=== PATIENT | female | born 1940 | race Caucasian/White ===

== ENCOUNTER 2023-07-25 08:14 | Outpatient (OUT) | payer MEDICARE, SELFPAY ==
[2023-07-25 08:42] LABS: Basophils Absolute Auto 0.1 10^3/uL (0.0-0.1); Basophils Percent Auto 1.6 % (0.2-2.0); Eosinophils Absolute Auto 0.4 10^3/uL (0.0-0.7); Eosinophils Percent Auto 5.8 % (0.9-7.0); Hematocrit 39.5 % (36.0-48.0); Immature Granulocytes Abs Auto 0.01 10^3/uL (0.00-0.03); Immature Granulocytes Pct Auto 0.1 % (0.0-0.5); Lymphocytes Absolute Auto 2.2 10^3/uL (1.2-3.8); Lymphocytes Percent Auto 31.4 % (20.5-60.0); Mean Corpuscular HGB Conc 32.9 g/dL (29.9-35.2); Mean Corpuscular Hemoglobin 31.3 pg (26.7-34.0); Mean Platelet Volume 9.8 fL (9.5-13.5); Monocytes Absolute Auto 0.5 10^3/uL (0.3-0.8); Monocytes Percent Auto 6.9 % (1.7-12.0); Neutrophils Absolute Auto 3.7 10^3/uL (1.4-6.5); Neutrophils Percent Auto 54.2 % (43.0-75.0); Platelet Count 353 10^3/uL (150-450); Red Blood Count 4.16 10^6/uL (4.20-5.40); Red Cell Distribution Width 13.1 % (11.0-15.0); White Blood Count 6.8 10^3/uL (4.0-11.0)
[2023-07-25 09:03] LABS: Estimated Average Glucose 143 mg/dL; Glycohemoglobin A1C 6.6 % (4.5-6.2)
[2023-07-25 09:31] LABS: Alanine Aminotransferase 20 U/L (14-59); Albumin Level 3.6 g/dL (3.4-5.0); Alkaline Phosphatase 110 U/L (46-116); Anion Gap 13.5; Aspartate Amino Transferase 19 U/L (15-37); BUN Creatinine Ratio 26.2; Bilirubin Total 0.5 mg/dL (0.2-1.0); Carbon Dioxide 27.1 mmol/L (21.0-32.0); Chloride 105 mmol/L (98-107); Chol HDL Ratio 4.2; Cholesterol 172 mg/dL (<=200); Estimated GFR (African America >60 (>=60); Estimated GFR (Non-African Ame >60 (>=60); Free T3 2.26 pg/mL (2.18-3.98); Globulin 3.5 g/dL; Glucose 130 mg/dL (74-106); HDL Cholesterol 41 mg/dL (40-60); Potassium 3.6 mmol/L (3.5-5.1); Sodium 142 mmol/L (136-145); Thyroid Stimulating Hormone 2.211 uIU/mL (0.358-3.740); Total Protein 7.1 g/dL (6.4-8.2); Triglycerides 156 mg/dL (<=150); VLDL CHOLESTEROL 31.2 mg/dL
== END 2023-07-25 08:15 | disposition home or self-care (01) ==
PROVIDERS: PCP Family Medicine; Visit Provider Family Medicine
DX: R53.83 Other fatigue (principal); E78.5 Hyperlipidemia, unspecified; E03.9 Hypothyroidism, unspecified; R73.03 Prediabetes
CPT/HCPCS: 36415; 80053; 80061; 83036; 84436; 84443; 84481; 85025

== ENCOUNTER 2023-11-09 07:22 | Outpatient (OUT) | payer MEDICARE, SELFPAY ==
--- NOTE | 2023-11-09 07:27 | XR_ITS ---
The [address] [address] Patient Name: SHILPA SHIRLEY MRN: [id number] date: 1940 Sex: F Assigned Patient Location: [facility] Current Patient Location: [facility] Accession/Order Number: [id number] Exam Date: 11/09/2023 07:52 Report Date: 11/09/2023 08:07 At the request of: WILDA ORTEGA Procedure: XR DEXA axial skeleton EXAMINATION: XR DEXA axial skeleton HISTORY: Age related osteoporosis COMPARISON: No relevant comparison available. TECHNIQUE: Dual-energy X-ray absorptiometry (DXA) was performed. FINDINGS: SPINE ANALYSIS: Average bone mineral density is 1.466 g/cm2. T-score (standard deviation relative to young adult mean): 2.4 . HIP ANALYSIS: Lowest bone mineral density is within the left femoral trochanter, 0.65 g/cm2. T-score (standard deviation relative to young adult mean): -2.0 . XR/XR DEXA axial skeleton IMPRESSION: [employer] Classification: Osteopenia - Moderate Fracture Risk Electronically authenticated by: IMER HERNANDEZ Date: 11/09/2023 08:07
--- NOTE | 2023-11-09 07:28 | MM_ITS ---
Patient Name: SHILPA SHIRLEY MR#: [id number] : 1940 Exam Date: 11/09/2023 Ordering Doctor: DR Loy Burgos . RADIOLOGY REPORT PROCEDURE: MM TOMOSYNTHESIS SCREENING BI COMPARISON: MG MAMM SCREEN 3D LIZZ CAD, 03/23/2021. MG MAMM SCREEN LIZZ W CAD, 04/04/2019. INDICATIONS: Screening mammogram Z12.31 Calculator Name NCI Breast Cancer Risk Assessment Tool 5 Year Breast Cancer Risk Not Reported. Lifetime Breast Cancer Risk Not Reported. Personal Breast Cancer No Personal Ovarian Cancer No Treatments None Family Cancers None LOCATION: [facility] BREAST COMPOSITION: Heterogeneously dense,which may obscure small masses. FINDINGS: DIAGNOSTIC CATEGORY 2--BENIGN FINDING: RIGHT BREAST: No significant suspicious finding. Scattered benign-appearing calcifications are present. Scattered benign-appearing lymph nodes are present. No significant change has occurred. LEFT BREAST: No significant suspicious finding. Scattered benign-appearing calcifications are present. Scattered benign-appearing lymph nodes are present. No significant change has occurred. RECOMMENDATIONS: ROUTINE MAMMOGRAM AND CLINICAL EVALUATION IN 12 MONTHS. PLEASE NOTE: A NORMAL MAMMOGRAM DOES NOT EXCLUDE THE POSSIBILITY OF BREAST CANCER. A CLINICALLY SUSPICIOUS PALPABLE LUMP SHOULD BE BIOPSIED. Dictated by: Quang Quiñones M.D. on 11/09/2023 at 14:09 Approved by: Quang Quiñones M.D. on 11/09/2023 at 14:19
== END 2023-11-09 07:23 | disposition home or self-care (01) ==
LOC: MAMMO 07:22
PROVIDERS: PCP Family Medicine; Visit Provider Family Medicine
DX: M81.0 Age-related osteoporosis without current pathological fracture (principal); Z12.31 Encounter for screening mammogram for malignant neoplasm of breast; M85.80 Other specified disorders of bone density and structure, unspecified site
CPT/HCPCS: 77063; 77067; 77080

== ENCOUNTER 2024-08-08 07:49 | Outpatient (OUT) | payer MEDICARE, SELFPAY ==
--- OUTSIDE RECORDS SUMMARY | 2024-08-08 07:57 | XMS_ITS | CCD ---
Author Organization [facility] Care Team Providers Care Seed Potato Arranger Name Role Phone GENESIS ANSARI Admitting Unavailable GENESIS ANSARI Unavailable GENESIS ANSARI Attending Unavailable JORDAN ., DR ASTUDILLO Primary Care Unavailable HOY ., DR ASTUDILLO Admitting Unavailable HOY ., DR ASTUDILLO Primary Care Unavailable HOY ., DR ASTUDILLO Consulting Unavailable HOY ., DR ASTUDILLO Attending Unavailable HOY ., DR ASTUDILLO Admitting Unavailable HOY ., DR ASTUDILLO Primary Care Unavailable HOY ., DR ASTUDILLO Consulting Unavailable HOY ., DR ASTUDILLO Attending Unavailable HOY ., DR ASTUDILLO Admitting Unavailable HOY ., DR ASTUDILLO Primary Care Unavailable HOY ., DR ASTUDILLO Consulting Unavailable HOY ., DR ASTUDILLO Attending Unavailable Genesis Burnette Unavailable Medications Current Medications Medication Drug Class(es) Dates Sig (Normalized) Sig (Original) ALPRAZolam 1 mg oral tablet (1 source) Benzodiazepine ALPRAZolam 1 MG Oral for 30 Days Active amoxicillin 875 mg / clavulanate 125 mg oral tablet (1 source) Penicillin-class Antibacterial Amoxicillin-Pot Clavulanate 875-125 MG Oral for 10 Days Active hydrocortisone 10 mg/ml / neomycin 3.5 mg/ml / polymyxin b [id number] unt/ml otic suspension (1 source) Aminoglycoside Antibacterial, Polymyxin-class Antibacterial, Corticosteroid Start: 08-03-2023 Neomycin-Polymyxin -HC [id number] 3 drops Otic Three times a day for 7 days Jul, Active levothyroxine sodium 0.15 mg oral tablet (1 source) l-Thyroxine Levothyroxine Sodium 150 MCG Oral for 30 Days Active meclizine hydrochloride 25 mg oral tablet (1 source) Antiemetic take 1 tablet by mouth four times daily as needed Meclizine HCl 25 MG TAKE 1 TABLET BY MOUTH FOUR TIMES DAILY NEEDED Oral for 8 Days Active metFORMIN hydrochloride 500 mg oral tablet (1 source) Biguanide metFORMIN HCl 50 0 MG Oral for 90 Days Active Nitro Sublingual 0.4 0.4mg (1 source) Nitro Sublingual 0.4 0.4mg 1 Sublingual Every 5min x3 Active pravastatin sodium 40 mg oral tablet (1 source) HMG-CoA Reductase Inhibitor Pravastatin Sodium 40 MG Oral for 90 Days Active Completed/Discontinued Medications Medication Drug Class(es) Dates Sig (Normalized) Sig (Original) ciprofloxacin 500 mg oral tablet (1 source) Quinolone Antimicrobial Ciprofloxacin HCl 50 0 MG Oral for 10 Days Not-Taking phenazopyridine hydrochloride 200 mg oral tablet (1 source) take 1 tablet by mouth three times daily after mealtime Phenazopyridine HCl 200 MG TAKE 1 TABLET BY MOUTH THREE TIMES DAILY AFTER MEALS Oral for 3 Days Not-Taking predniSONE 20 mg oral tablet (1 source) predniSONE 20 MG Oral for 5 Days Not-Taking Problems Active Problems Problem Classification Problem Date Documented Da te Episodic/Chronic Diabetes mellitus without complication (1 source) Type 2 diabetes mellitus without complications; Translations: [TYPE 2 DM WITHOUT COMPLICATIONS] Onset: 05-06-2022 Chronic Disorders of lipid metabolism (4 sources) Hyperlipidemia, unspecified; Translations: [HYPERLIPIDEMIA UNSPECIFIED] Onset: 05-01-2022 Chronic Genitourinary symptoms and ill-defined conditions (4 sources) Frequency of micturition; Translations: [FREQUENCY OF MICTURITION] Onset: 03-31-2023 Episodic Nutritional deficiencies (1 source) Vitamin D deficiency, unspecified; Translations: [VITAMIN D DEFICIENCY UNSPECIFIED] Onset: 04-30-2022 Chronic Other ear and sense organ disorders (1 source) Unspecified otitis externa, left ear Chronic Other ear and sense organ disorders (1 source) Impacted cerumen, bilateral Episodic Past or Other Problems Problem Classification Problem Date Documented Da te Episodic/Chronic Diabetes mellitus without complication (1 source) Other abnormal glucose; Translations: [OTHER ABNORMAL GLUCOSE] Onset: 05-06-2022 Episodic Other aftercare (1 source) Other supervisor intermediates (current) drug therapy; Translations: [OTH RECREATIONAL PROGRAMS DIRECTOR CURRENT DRUG THERAPY] Onset: 05-06-2022 Episodic Other screening for suspected conditions (not mental disorders or infectious disease) (6 sources) Encounter for screening for malignant neoplasm of colon; Translations: [Abnormal results of liver function studies] Onset: 04-29-2022 Episodic Thyroid disorders (1 source) Other specified disorders of thyroid; Translations: [OTHER SPECIFIED DISORDERS THYROID] Onset: 05-05-2022 Episodic Results Test Name Value Interpretation Reference Range Facil ity CULTURE URINEon 03-31-2023 CULTURE URINE Culture Observations: LIGHT GROWTH OF MIXED GENITAL HASMUKH. NO POTENTIAL PATHOGENS SEEN. Normal [facility] Comment on above: Performed By: #### U RCX #### [facility] [address] [address] [address] Aly Ca UA RANDOM W/MICROSCOPICon BACTERIA TRACE Abnormal NONE SEEN [facility] Comment on above: Performed By: #### U AMIC #### [facility] [address] [place] [address] Dr. Aly Ca Bilirubin Ql (U) Negative Normal NEGATIVE [facility] Comment on above: Performed By: #### U AMIC #### [facility] [address] [place] [address] Dr. Aly Ca CAST NONE SEEN Normal NONE SEEN [facility] Comment on above: Performed By: #### U AMIC #### [facility] [address] [place] [address] Dr. Aly Ca Clarity (U) CLEAR Normal CLEAR [facility] Comment on above: Performed By: #### U AMIC #### [facility] [address] [place] [address] Dr. Aly Ca Color (U) YELLOW Normal YELLOW [facility] Comment on above: Performed By: #### U AMIC #### [facility] [address] [address] [address] Aly Ca Crystals LM Nom (Urine sed) NONE SEEN Normal NONE SEEN [facility] Comment on above: Performed By: #### U AMIC #### [facility] [address] [place] [address] Dr. Aly Ca Epithelial cells LM Ql (Urine sed) RARE Normal NONE SEEN /RARE [facility] Comment on above: Performed By: #### U AMIC #### [facility] [address] [place] [address] Dr. Aly Ca Glucose Ql (U) Negative Normal NEGATIVE [facility] Comment on above: Performed By: #### U AMIC #### [facility] [address] [address] [address] Aly Ca Hemoglobin Ql (U) Negative Normal NEGATIVE [facility] Comment on above: Performed By: #### U AMIC #### [facility] [address] [address] [address] Aly Ca Ketones Ql (U) TRACE Abnormal NEGATIVE [facility] Comment on above: Performed By: #### U AMIC #### [facility] [address] [address] [address] Aly Ca LEUKOCYTES TRACE Abnormal NEGATIVE [facility] Comment on above: Performed By: #### U AMIC #### [facility] [address] [place] [address] Dr. Aly Ca MUCOUS TRACE Abnormal NONE SEEN [facility] Comment on above: Performed By: #### U AMIC #### [facility] [address] [address] [address] Aly Ca Nitrite Ql (U) Negative Normal NEGATIVE [facility] Comment on above: Performed By: #### U AMIC #### [facility] [address] [place] [address] Dr. Aly Ca pH (U) 6.5 [pH] Normal 5-9 [facility] Comment on above: Performed By: #### U AMIC #### [facility] [address] [place] [address] Dr. Aly Ca RBC 0-2 Normal 0-2 [facility] Comment on above: Performed By: #### U AMIC #### [facility] [address] [place] [address] Dr. Aly Ca SPEC GRAVITY 1.015 Normal 1.005-<=1.025 [facility] Comment on above: Performed By: #### U AMIC #### [facility] [address] [place] [address] Dr. Aly Ca UA PROTEIN Negative Normal NEGATIVE/ TRACE [facility] Comment on above: Performed By: #### U AMIC #### [facility] [address] [place] [address] Dr. Aly Ca Urobilinogen Qn (U) 2.0 {Adelia'U}/dL Abnormal 0.2 - 1. 0 [facility] Comment on above: Performed By: #### U AMIC #### [facility] [address] [place] [address] Dr. Aly Ca WBC 0-2 Abnormal NONE SEEN [facility] Comment on above: Performed By: #### U AMIC #### [facility] [address] [place] [address] Dr. Aly Ca OCC BLD IMMUNO SCREENon OCCULT BLOOD Negative Normal NEGATIVE [facility] Comment on above: Performed By: #### O BSCRN #### [facility] [address] [place] [address] Dr. Aly Ca AMMONIAon 04-29-2022 Ammonia (P) [Moles/Vol] 17 umol/L Normal 11-32 [facility] Comment on above: Performed By: #### A MM #### [facility] [address] [place] [address] Dr. Aly Ca PROF 14(COMP METB)on 022 Albumin [Mass/Vol] 3.6 g/dL Normal 3.4-5.0 [facility] Comment on above: Performed By: #### C MP #### [facility] [address] [place] [address] Dr. Aly Ca Albumin/Globulin [Mass ratio] 1.0 {ratio} Normal [facility] Comment on above: Performed By: #### C MP #### [facility] [address] [place] [address] Dr. Aly Ca ALP [Catalytic activity/Vol] 124 U/L Critically high 46-116 [facility] Comment on above: Performed By: #### C MP #### [facility] [address] [place] [address] Dr. Aly Ca ALT [Catalytic activity/Vol] 81 U/L Critically high 14-59 [facility] Comment on above: Performed By: #### C MP #### [facility] [address] [address] [address] Aly Ca Anion gap [Moles/Vol] 15.1 mmol/L Normal [facility] Comment on above: Performed By: #### C MP #### [facility] [address] [address] [address] Aly Ca AST [Catalytic activity/Vol] 58 U/L Critically high 15-37 [facility] Comment on above: Performed By: #### C MP #### [facility] [address] [address] [address] Aly Ca Bilirubin [Mass/Vol] 0.8 mg/dL Normal 0.2-1.0 [facility] Comment on above: Performed By: #### C MP #### [facility] [address] [address] [address] Aly Ca Calcium [Mass/Vol] 9.1 mg/dL Normal 8.5-10.1 [facility] Comment on above: Performed By: #### C MP #### [facility] [address] [address] [address] Aly Ca Chloride [Moles/Vol] 104 mmol/L Normal 98-107 [facility] Comment on above: Performed By: #### C MP #### [facility] [address] [address] [address] Aly Ca CO2 [Moles/Vol] 25.7 mmol/L Normal 21.0-32.0 [facility] Comment on above: Performed By: #### C MP #### [facility] [address] [address] [address] Aly Ca Creatinine [Mass/Vol] 0.71 mg/dL Normal 0.55-1.02 [facility] Comment on above: Performed By: #### C MP #### [facility] [address] [address] [address] Aly Ca EGFR-AF [place] >60 Normal >=60 [facility] Comment on above: Performed By: #### C MP #### [facility] [address] [address] [address] Aly Ca EGFR-NON AF [place] >60 Normal >=60 [facility] Comment on above: Performed By: #### C MP #### [facility] [address] [address] [address] Aly Ca Globulin (S) [Mass/Vol] 3.6 g/dL Normal [facility] Comment on above: Performed By: #### C MP #### [facility] [address] [address] [address] Aly Ca Glucose [Mass/Vol] 150 mg/dL Critically high 74-106 [facility] Comment on above: Performed By: #### C MP #### [facility] [address] [place] [address] Dr. Aly Ca Potassium [Moles/Vol] 3.8 mmol/L Normal 3.5-5.1 [facility] Comment on above: Performed By: #### C MP #### [facility] [address] [place] [address] Dr. Aly Ca Protein [Mass/Vol] 7.2 g/dL Normal 6.4-8.2 [facility] Comment on above: Performed By: #### C MP #### [facility] [address] [place] [address] Dr. Aly Ca Sodium [Moles/Vol] 141 mmol/L Normal 136-145 [facility] Comment on above: Performed By: #### C MP #### [facility] [address] [address] [address] Aly Ca Urea nitrogen [Mass/Vol] 15.0 mg/dL Normal 7.0-18.0 [facility] Comment on above: Performed By: #### C MP #### [facility] [address] [place] [address] Dr. Aly Ca Urea nitrogen/Creatinine [Mass ratio] 21.1 mg/mg Normal [facility] Comment on above: Performed By: #### C MP #### [facility] [address] [place] [address] Dr. Aly Ca PROTIMEon 04-29-2022 INR Coag (PPP) [Relative time] 0.95 {INR} Normal [facility] Comment on above: Performed By: #### P TT, PT #### [facility] [address] [place] [address] Dr. Aly Ca INR GUIDELINES SEE BELOW Normal [facility] Comment on above: Result Comment: JACQUE RED INR: 2.0 - 3.0 CONDITIONS NOT LISTED BELOW 2.5 - 3.5 FOR PROSTHETIC HEART VALVE REPLACEMENT 2.5 - 3.5 RECURRENT THROMBOSIS Performed By: #### P TT, PT #### [facility] [address] [place] [address] Dr. Aly Ca PT Coag (PPP) [Time] 10.3 s Normal 9.0-11.6 [facility] Comment on above: Performed By: #### P TT, PT #### [facility] [address] [place] [address] Dr. Aly Ca PTTon 04-29-2022 aPTT Coag (Bld) [Time] 27.7 s Normal 22.3-36.2 [facility] Comment on above: Performed By: #### A MM #### [facility] [address] [place] [address] Dr. Aly Ca T4 LABCORPon 04-24-2022 T4 [Mass/Vol] 10.7 ug/dL Normal 4.5-12.0 [facility] Comment on above: Performed By: #### T 4LC #### [facility] [address] [place] [address] Dr. Aly Ca CBC AUTO DIFFon 04-23-2022 BASO # 0.1 103/ul Normal 0.0-0.1 [facility] Comment on above: Performed By: #### C BC #### [facility] [address] [place] [address] Dr. Aly Ca Basophils/100 WBC (Bld) 1.5 % Normal 0.2-2.0 [facility] Comment on above: Performed By: #### C BC #### [facility] [address] [place] [address] Dr. Aly Ca EO # 0.4 103/ul Normal 0.0-0.7 [facility] Comment on above: Performed By: #### C BC #### [facility] [address] [place] [address] Dr. Aly Ca Eosinophils/100 WBC (Bld) 5.6 % Normal 0.9-7.0 [facility] Comment on above: Performed By: #### C BC #### [facility] [address] [place] [address] Dr. Aly Ca Erythrocyte distribution width (RBC) [Ratio] 12.3 % Normal 11.0-15.0 [facility] Comment on above: Performed By: #### C BC #### [facility] [address] [place] [address] Dr. Aly Ca Hematocrit (Bld) [Volume fraction] 38.4 % Normal 36.0-48.0 [facility] Comment on above: Performed By: #### C BC #### [facility] [address] [place] [address] Dr. Aly Ca Hemoglobin (Bld) [Mass/Vol] 13.0 g/dL Normal 12.0-16.0 [facility] Comment on above: Performed By: #### C BC #### [facility] [address] [place] [address] Dr. Aly Ca IG # 0.03 10e3/ul Normal 0.00-0.03 [facility] Comment on above: Performed By: #### C BC #### [facility] [address] [place] [address] Dr. Aly Ca IG % 0.5 % Normal 0.0-0.5 [facility] Comment on above: Performed By: #### C BC #### [facility] [address] [place] [address] Dr. Aly Ca LYMPH # 2.3 103/ul Normal 1.2-3.8 [facility] Comment on above: Performed By: #### C BC #### [facility] [address] [place] [address] Dr. Aly Ca Lymphocytes/100 WBC (Bld) 35.0 % Normal 20.5-60.0 [facility] Comment on above: Performed By: #### C BC #### [facility] [address] [place] [address] Dr. Aly Ca MANUAL DIFF REQ NO Normal [facility] Comment on above: Performed By: #### C BC #### [facility] [address] [place] [address] Dr. Aly Ca MCH (RBC) [Entitic mass] 31.8 pg Normal 26.7-34.0 [facility] Comment on above: Performed By: #### C BC #### [facility] [address] [place] [address] Dr. Aly Ca MCHC (RBC) [Mass/Vol] 33.9 g/dL Normal 29.9-35.2 [facility] Comment on above: Performed By: #### C BC #### [facility] [address] [place] [address] Dr. Aly Ca MCV (RBC) [Entitic vol] 93.9 fL Normal 81.0-99.0 [facility] Comment on above: Performed By: #### C BC #### [facility] [address] [place] [address] Dr. Aly Ca MONO # 0.4 103/ul Normal 0.3-0.8 [facility] Comment on above: Performed By: #### C BC #### [facility] [address] [place] [address] Dr. Aly Ca Monocytes/100 WBC (Bld) 6.3 % Normal 1.7-12.0 [facility] Comment on above: Performed By: #### C BC #### [facility] [address] [place] [address] Dr. Aly Ca NEUT # 3.4 103/ul Normal 1.4-6.5 [facility] Comment on above: Performed By: #### C BC #### [facility] [address] [place] [address] Dr. Aly Ca Neutrophils/100 WBC (Bld) 51.1 % Normal 43.0-75.0 [facility] Comment on above: Performed By: #### C BC #### [facility] [address] [address] [address] Aly Ca Platelet mean volume (Bld) [Entitic vol] 9.8 fL Normal 9.5-13.5 [facility] Comment on above: Performed By: #### C BC #### [facility] [address] [address] [address] Aly Ca PLT 388 103/ul Normal 150-450 [facility] Comment on above: Performed By: #### C BC #### [facility] [address] [place] [address] Dr. Aly Ca RBC 4.09 106/ul Critically low 4.20-5.40 [facility] Comment on above: Performed By: #### C BC #### [facility] [address] [place] [address] Dr. Aly Ca WBC 6.7 103/ul Normal 4.0-11.0 [facility] Comment on above: Performed By: #### C BC #### [facility] [address] [place] [address] Dr. Aly Ca FREE T3on 04-23-2022 FREE T3 3.55 pg/mlL Normal 2.18-3.98 [facility] Comment on above: Performed By: #### A MM #### [facility] [address] [place] [address] Dr. Aly Ca GLYCOHEMOGLOBIN A1Con 2021 ADA RECOMMENDATION SEE BELOW Normal [facility] Comment on above: Result Comment: ADA RECOMMENDED LIMIT 4.0 - 6.0 ADA THERAPEUTIC TARGET < 7.0 ACTION SUGGESTED > 7.0 Performed By: #### A 1C #### [facility] [address] [place] [address] Dr. Aly Ca Glucose [Mass/Vol] 151 mg/dL Normal [facility] Comment on above: Performed By: #### A 1C #### [facility] [address] [place] [address] Dr. Aly Ca HbA1c (Bld) [Mass fraction] 6.9 % Critically high 4.5-6.2 [facility] Comment on above: Performed By: #### A 1C #### [facility] [address] [address] [address] Aly Ca LIPID PROFILEon 04-23-2022 CHOL-HDL RATIO NORM SEE BELOW Normal [facility] Comment on above: Result Comment: 3.3 - 4.4 LOW RISK 4.4 - 7.1 AVERAGE RISK 7.1 - 11.0 MODERATE RISK >11.0 HIGH RISK Performed By: #### A MM #### [facility] [address] [address] [address] Aly Ca Cholesterol [Mass/Vol] 191 mg/dL Normal <=200 [facility] Comment on above: Performed By: #### A MM #### [facility] [address] [address] [address] Aly Ca Cholesterol in HDL [Mass/Vol] 34 mg/dL Critically low 40-60 [facility] Comment on above: Performed By: #### A MM #### [facility] [address] [address] [address] Aly Ca Cholesterol in LDL [Mass/Vol] 97.6 mg/dL Normal [facility] Comment on above: Performed By: #### A MM #### [facility] [address] [address] [address] Aly Ca Cholesterol.total/Cho lesterol in HDL [Mass ratio] 5.6 {ratio} Normal [facility] Comment on above: Performed By: #### A MM #### [facility] [address] [address] [address] Aly Ca HDL NORMAL > or = 60 mg/dl - LOW CARDIOVASCULAR RISK <40 mg/dl - HIGH CARDIOVASCULAR RISK Normal [facility] Comment on above: Performed By: #### A MM #### [facility] [address] [address] [address] Aly Ca LDL CALC NORMAL SEE BELOW Normal [facility] Comment on above: Result Comment: <100 mg/dl OPTIMAL 100 - 129 mg/dl NEAR OR ABOVE OPTIMAL 130 - 159 mg/dl BORDERLINE HIGH 160 - 189 mg/dl HIGH >190 mg/dl VERY HIGH Performed By: #### A MM #### [facility] [address] [place] [address] Dr. Aly Ca Triglyceride [Mass/Vol] 297 mg/dL Critically high <=150 [facility] Comment on above: Performed By: #### A MM #### [facility] [address] [place] [address] Dr. Aly Ca VLDL CALC 59.4 mg/dL Normal [facility] Comment on above: Performed By: #### A MM #### [facility] [address] [place] [address] Dr. Aly Ca PROF 14(COMP METB)on 022 Albumin [Mass/Vol] 3.5 g/dL Normal 3.4-5.0 [facility] Comment on above: Performed By: #### A MM #### [facility] [address] [place] [address] Dr. Aly Ca Albumin/Globulin [Mass ratio] 1.0 {ratio} Normal [facility] Comment on above: Performed By: #### A MM #### [facility] [address] [place] [address] Dr. Aly Ca ALP [Catalytic activity/Vol] 126 U/L Critically high 46-116 [facility] Comment on above: Performed By: #### A MM #### [facility] [address] [place] [address] Dr. Aly Ca ALT [Catalytic activity/Vol] 99 U/L Critically high 14-59 [facility] Comment on above: Performed By: #### A MM #### [facility] [address] [place] [address] Dr. Aly Ca Anion gap [Moles/Vol] 13.4 mmol/L Normal [facility] Comment on above: Performed By: #### A MM #### [facility] [address] [place] [address] Dr. Aly Ca AST [Catalytic activity/Vol] 87 U/L Critically high 15-37 [facility] Comment on above: Performed By: #### A MM #### [facility] [address] [address] [address] Aly Ca Bilirubin [Mass/Vol] 0.7 mg/dL Normal 0.2-1.0 [facility] Comment on above: Performed By: #### A MM #### [facility] [address] [address] [address] Aly Ca Calcium [Mass/Vol] 8.8 mg/dL Normal 8.5-10.1 [facility] Comment on above: Performed By: #### A MM #### [facility] [address] [address] [address] Aly Ca Chloride [Moles/Vol] 105 mmol/L Normal 98-107 [facility] Comment on above: Performed By: #### A MM #### [facility] [address] [place] [address] Dr. Aly Ca CO2 [Moles/Vol] 26.1 mmol/L Normal 21.0-32.0 [facility] Comment on above: Performed By: #### A MM #### [facility] [address] [place] [address] Dr. Aly Ca Creatinine [Mass/Vol] 0.64 mg/dL Normal 0.55-1.02 [facility] Comment on above: Performed By: #### A MM #### [facility] [address] [place] [address] Dr. Aly Ca EGFR-AF [place]ORE[place] >60 Normal >=60 [facility] Comment on above: Performed By: #### A MM #### [facility] [address] [place] [address] Dr. Aly Ca EGFR-NON AF [place] >60 Normal >=60 [facility] Comment on above: Performed By: #### A MM #### [facility] [address] [place] [address] Dr. Aly Ca Globulin (S) [Mass/Vol] 3.4 g/dL Normal [facility] Comment on above: Performed By: #### A MM #### [facility] [address] [address] [address] Aly Ca Glucose [Mass/Vol] 157 mg/dL Critically high 74-106 [facility] Comment on above: Performed By: #### A MM #### [facility] [address] [address] [address] Aly Ca Potassium [Moles/Vol] 3.5 mmol/L Normal 3.5-5.1 [facility] Comment on above: Performed By: #### A MM #### [facility] [address] [address] [address] Aly Ca Protein [Mass/Vol] 6.9 g/dL Normal 6.4-8.2 [facility] Comment on above: Performed By: #### A MM #### [facility] [address] [address] [address] Aly Ca Sodium [Moles/Vol] 141 mmol/L Normal 136-145 [facility] Comment on above: Performed By: #### A MM #### [facility] [address] [address] [address] Aly Ca Urea nitrogen [Mass/Vol] 11.0 mg/dL Normal 7.0-18.0 [facility] Comment on above: Performed By: #### A MM #### [facility] [address] [address] [address] Aly Ca Urea nitrogen/Creatinine [Mass ratio] 17.2 mg/mg Normal [facility] Comment on above: Performed By: #### A MM #### [facility] [address] [address] [address] Aly Ca TSHon 04-23-2022 TSH 0.192 uIU/mL Critically low 0.358-3.740 [facility] Comment on above: Performed By: #### A MM #### [facility] [address] [address] [address] Aly Ca TSH RANGE SEE BELOW Normal [facility] Comment on above: Result Comment: <0.3 4 UIU/ml HYPERTHYROID 0.34-5.60 UIU/ml EUTHYROID >5.60 UIU/ml HYPOTHYROID Performed By: #### A MM #### [facility] [address] [address] [address] Aly Ca VITAMIN D 25 OHon 04-23-2022 VIT D 25-OH 53.2 ng/mL Normal [facility] Comment on above: Performed By: #### V ITAD #### [facility] [id number] Aly Ca VIT D RANGES SEE BELOW Normal [facility] Comment on above: Result Comment: <20 ng/mL Vit D deficient 20 - <30 ng/mL Vit D insufficient 30 - 100 ng/mL Vit D sufficient >100 ng/mL Potential Toxicity Performed By: #### V ITAD #### [facility] [address] [address] [address] Aly Ca Vital Signs Date Time Vital Sign Value Performing Clinician Facility 08-03-2023 13:40-0400 Body height 167.64 cm [facility] Other 08-03-2023 13:40-0400 Body mass index (BMI) [Ratio] 26.56 kg/m2 [facility] Other 08-03-2023 13:40-0400 Body temperature 97.2 [degF] [facility] Other 08-03-2023 13:40-0400 Body weight 74.66 kg [facility] Other 08-03-2023 13:40-0400 Diastolic blood pressure 77 mm[Hg] [facility] Other 08-03-2023 13:40-0400 Respiratory rate 22 /min [facility] Other 08-03-2023 13:40-0400 SaO2% (BldA) [Mass fraction] 97 % [facility] Other 08-03-2023 13:40-0400 Systolic blood pressure 125 mm[Hg] [facility] Other Encounters Encounter Date Encounter Type Care Provider Facility Start: 08-03-2023 End: 08-03-2023 ambulatory [facility] Other [facility] Other Start: 08-03-2023 Office outpatient ne w 20 minutes [facility] Start: 03-31-2023 End: 04-01-2023 ambulatory GENES[facility] ANSARI Facility:[facility] Start: 05-01-2022 End: 05-01-[address] WILDA ORTEGA . Facility:[facility] Start: 04-29-2022 End: 04-30-[address] WILDA ORTEGA . Facility:[facility] Start: 04-23-2022 End: 04-24-[address] WILDA ORTEGA . Facility:[facility] Payers Date Payer Category Payer Medicare [id number] 1957 Private Health Insurance [facility] [id number] 1940 Unknown [id number] 1940 Unknown [id number] 1940 Unknown [id number] .[id number] [id number] 1940 Unknown [id number] .[id number] [id number] Social History Date Type Detail Facility Unknown if ever smoked [facility] Other Sex Assigned At Sex Assigned At Bir th [facility] Other Evaluation note 08-03-2023 Note Date & Type Note Facility 08-03-2023 Evaluation note Encounter Date Diagnosis Assessment Notes Jul, Bilateral impacted cerumen (ICD-10 - H61.23) Drink plenty fluids, get plenty of rest. Continue home medications as prescribed. Use eardrops as prescribed. Follow-up with your family physician if no improvement in 2 to 3 days Jul, Otitis externa of left ear, unspecified chronicity, unspecified type (ICD-10 - H60.92) [facility] Other History general Narrative - Reported Note Date & Type Note Facility History general Narrative - Reported Type Medical History Hypothyroid Medical History Anxiety Medical History Hypercholesteremia Medical History Diabetes Medical History Dizziness Surgical History cholecystectomy Surgical History bladder suspension, unspecified Surgical History tubal ligation Surgical History oral surgery Surgical History HYSTERECTOMY Surgical History D&C Surgical History colonoscopy [facility] Other Summary Purpose Family History No Family History Records Found Advance Directives No Advanced Directives Records Found Additional Source Comments INFORMATION SOURCE (unrecogn ized section and content) DATE CREATED AUTHOR 04/07/2023 [facility] REASON FOR VISIT (unrecogniz ed section and content) VERTIGO, EARS ARE POPPING FOR RECORDS PERTAINING TO PATIENTS WHO ARE OR HAVE BEEN ENROLLED IN A CHEMICAL DEPENDENCY/SUBSTANCEABUSE PROGRAM, SOME INFORMATION MAY BE OMITTED. This clinical summary was aggregated from multiple sources. Caution should be exercised in using it in the provision of clinical care. This summary normalizes information from multiple sources, and as a consequence, information in this document may materially change the coding, format and clinical context of patient data. In addition, data may be omitted in some cases. CLINICAL DECISIONS SHOULD BE BASED ON THE PRIMARY CLINICAL RECORDS. [employer] [facility]. provides no warranty or guarantee of the accuracy or completeness of information in this document.
[2024-08-08 08:08] LABS: Basophils Absolute Auto 0.1 10^3/uL (0.0-0.1); Basophils Percent Auto 1.4 % (0.2-2.0); Eosinophils Absolute Auto 0.3 10^3/uL (0.0-0.7); Eosinophils Percent Auto 3.9 % (0.9-7.0); Hematocrit 40.3 % (36.0-48.0); Hemoglobin 13.6 g/dL (12.0-16.0); Immature Granulocytes Abs Auto 0.01 10^3/uL (0.00-0.03); Immature Granulocytes Pct Auto 0.2 % (0.0-0.5); Lymphocytes Absolute Auto 2.4 10^3/uL (1.2-3.8); Lymphocytes Percent Auto 37.1 % (20.5-60.0); Mean Corpuscular HGB Conc 33.7 g/dL (29.9-35.2); Mean Corpuscular Hemoglobin 31.6 pg (26.7-34.0); Mean Corpuscular Volume 93.5 fL (81.0-99.0); Mean Platelet Volume 9.8 fL (9.5-13.5); Monocytes Absolute Auto 0.5 10^3/uL (0.3-0.8); Monocytes Percent Auto 7.6 % (1.7-12.0); Neutrophils Absolute Auto 3.2 10^3/uL (1.4-6.5); Neutrophils Percent Auto 49.8 % (43.0-75.0); Platelet Count 356 10^3/uL (150-450); Red Blood Count 4.31 10^6/uL (4.20-5.40); Red Cell Distribution Width 12.7 % (11.0-15.0); White Blood Count 6.3 10^3/uL (4.0-11.0)
[2024-08-08 08:29] LABS: Estimated Average Glucose 146 mg/dL; Glycohemoglobin A1C 6.7 % (4.5-6.2)
[2024-08-08 09:04] LABS: Alanine Aminotransferase 24 U/L (14-59); Albumin Globulin Ratio 1.1; Albumin Level 3.6 g/dL (3.4-5.0); Alkaline Phosphatase 148 U/L (46-116); Anion Gap 10.1; Aspartate Amino Transferase 20 U/L (15-37); BUN Creatinine Ratio 19.1; Bilirubin Total 0.8 mg/dL (0.2-1.0); Carbon Dioxide 28.6 mmol/L (21.0-32.0); Chloride 105 mmol/L (98-107); Chol HDL Ratio 3.9; Cholesterol 174 mg/dL (<=200); Estimated GFR (African America >60 (>=60); Estimated GFR (Non-African Ame >60 (>=60); Globulin 3.2 g/dL; Glucose 143 mg/dL (74-106); HDL Cholesterol 45 mg/dL (40-60); Potassium 3.7 mmol/L (3.5-5.1); Sodium 140 mmol/L (136-145); Thyroid Stimulating Hormone 2.889 uIU/mL (0.358-3.740); Total Protein 6.8 g/dL (6.4-8.2); Triglycerides 173 mg/dL (<=150); VLDL CHOLESTEROL 34.6 mg/dL
[2024-08-08 09:31] LABS: Free T4 0.88 ng/dL (0.76-1.46)
== END 2024-08-08 07:50 | disposition home or self-care (01) ==
LOC: LAB 07:51
PROVIDERS: PCP Family Medicine; Visit Provider Family Medicine
DX: R53.83 Other fatigue (principal); E03.9 Hypothyroidism, unspecified; E78.5 Hyperlipidemia, unspecified; R73.09 Other abnormal glucose
CPT/HCPCS: 36415; 80053; 80061; 83036; 84439; 84443; 85025

== ENCOUNTER 2024-11-30 07:41 | Emergency (ER) | payer MEDICARE, SELFPAY ==
--- NOTE | 2024-11-30 08:13 | PC.NURSE ---
Donor referral made. Not considered due to age. Ref ID [id number]. Pt wishes to leave at this time. Wants [facility] to handle arrangements. Darryl Macario home phone is [phone]
--- OUTSIDE RECORDS SUMMARY | 2024-11-30 08:18 | XMS_ITS | CCD ---
Author Organization [facility] Care Team Providers Care Mogul Operator Name Role Phone GENESIS ANSARI Admitting Unavailable GENESIS ANSARI Consulting Unavailable GENESIS ANSARI Attending Unavailable JORDAN ., [...] / neomycin 3.5 mg/ml / polymyxin b 99164 unt/ml otic suspension (1 source) Aminoglycoside Antibacterial, Polymyxin-class Antibacterial, Corticosteroid Start: 08-03-2023 Neomycin-Polymyxin -HC 3.5-94997-1 3 drops Otic Three times a day [...] 05-06-2022 Episodic Other aftercare (1 source) Other long-term (current) drug therapy; Translations: [OTH [facility] CURRENT DRUG THERAPY] Onset: 05-06-2022 Episodic Other [...] HASMUKH. NO POTENTIAL PATHOGENS SEEN. Normal [facility] Comment on above: Performed By: #### U RCX #### [facility] [address] [address] [address] Aly Ca UA RANDOM W/MICROSCOPICon BACTERIA TRACE Abnormal NONE SEEN [facility] Comment on above: Performed By: #### U AMIC #### [facility] [address] [place] [address] Dr. Aly Ca Bilirubin Ql (U) Negative Normal NEGATIVE [facility] Comment on above: Performed By: #### U AMIC #### [facility] [address] [place] [address] Dr. Aly Ca CAST NONE SEEN Normal NONE SEEN [facility] Comment on above: Performed By: #### U AMIC #### [facility] [address] [place] [address] Dr. Aly Ca Clarity (U) CLEAR Normal CLEAR [facility] Comment on above: Performed By: #### U AMIC #### [facility] [address] [place] [address] Dr. Aly Ca Color (U) YELLOW Normal YELLOW [facility] Comment on above: Performed By: #### U AMIC #### [facility] [address] [address] [address] Aly Ca Crystals LM Nom (Urine sed) NONE SEEN Normal NONE SEEN [facility] Comment on above: Performed By: #### U AMIC #### [facility] [address] [place] [address] Dr. Aly Ca Epithelial cells LM Ql (Urine sed) RARE Normal NONE SEEN /RARE [facility] Comment on above: Performed By: #### U AMIC #### [facility] [address] [place] [address] Dr. Aly Ca Glucose Ql (U) Negative Normal NEGATIVE [facility] Comment on above: Performed By: #### U AMIC #### [facility] [address] [address] [address] Aly Ca Hemoglobin Ql (U) Negative Normal NEGATIVE [facility] Comment on above: Performed By: #### U AMIC #### [facility] [address] [address] [address] Aly Ca Ketones Ql (U) TRACE Abnormal NEGATIVE [facility] Comment on above: Performed By: #### U AMIC #### [facility] [address] [address] [address] Aly Ca LEUKOCYTES TRACE Abnormal NEGATIVE [facility] Comment on above: Performed By: #### U AMIC #### [facility] [address] [place] [address] Dr. Aly Ca MUCOUS TRACE Abnormal NONE SEEN [facility] Comment on above: Performed By: #### U AMIC #### [facility] [address] [address] [address] Aly Ca Nitrite Ql (U) Negative Normal NEGATIVE [facility] Comment on above: Performed By: #### U AMIC #### [facility] [address] [place] [address] Dr. Aly Ca pH (U) 6.5 [pH] Normal 5-9 [facility] Comment on above: Performed By: #### U AMIC #### [facility] [address] [place] [address] Dr. Aly Ca RBC 0-2 Normal 0-2 [facility] Comment on above: Performed By: #### U AMIC #### [facility] [address] [place] [address] Dr. Aly Ca SPEC GRAVITY 1.015 Normal 1.005-<=1.025 [facility] Comment on above: Performed By: #### U AMIC #### [facility] [address] [place] [address] Dr. Aly Ca UA PROTEIN Negative Normal NEGATIVE/ TRACE The [facility] Comment on above: Performed By: #### U AMIC #### [facility] [address] [place] [address] Dr. Aly Ca Urobilinogen Qn (U) 2.0 {Adelia'U}/dL Abnormal 0.2 - 1. 0 [facility] Comment on above: Performed By: #### U AMIC #### [facility] [address] [place] [address] Dr. Aly Ca WBC 0-2 Abnormal NONE SEEN [facility] Comment on above: Performed By: #### U AMIC #### [facility] [address] [place] [address] Dr. Aly Ca OCC BLD IMMUNO SCREENon OCCULT BLOOD Negative Normal NEGATIVE [facility] Comment on above: Performed By: #### O BSCRN #### [facility] [address] [place] [address] Dr. Aly Ca AMMONIAon 04-29-2022 Ammonia (P) [Moles/Vol] 17 umol/L Normal 11-32 [facility] Comment on above: Performed By: #### A MM #### [facility] [address] [place] [address] Dr. Aly Ca PROF 14(COMP METB)on 022 Albumin [Mass/Vol] 3.6 g/dL Normal 3.4-5.0 [facility] Comment on above: Performed By: #### C MP #### [facility] [address] [place] [address] Dr. Aly Ca Albumin/Globulin [Mass ratio] 1.0 {ratio} Normal [facility] Comment on above: Performed By: #### C MP #### [facility] [address] [place] [address] Dr. Aly Ca ALP [Catalytic activity/Vol] 124 U/L Critically high 46-116 [facility] Comment on above: Performed By: #### C MP #### [facility] [address] [place] [address] Dr. Aly Ca ALT [Catalytic activity/Vol] 81 U/L Critically high 14-59 [facility] Comment on above: Performed By: #### C MP #### [facility] [address] [address] [address] Aly Ca Anion gap [Moles/Vol] 15.1 mmol/L Normal [facility] Comment on above: Performed By: #### C MP #### [facility] [address] [address] [address] Aly Ca AST [Catalytic activity/Vol] 58 U/L Critically high 15-37 [facility] Comment on above: Performed By: #### C MP #### [facility] [address] [address] [address] Aly Ca Bilirubin [Mass/Vol] 0.8 mg/dL Normal 0.2-1.0 [facility] Comment on above: Performed By: #### C MP #### [facility] [address] [address] [address] Aly Ca Calcium [Mass/Vol] 9.1 mg/dL Normal 8.5-10.1 [facility] Comment on above: Performed By: #### C MP #### [facility] [address] [address] [address] Aly Ca Chloride [Moles/Vol] 104 mmol/L Normal 98-107 [facility] Comment on above: Performed By: #### C MP #### [facility] [address] [address] [address] Aly Ca CO2 [Moles/Vol] 25.7 mmol/L Normal 21.0-32.0 [facility] Comment on above: Performed By: #### C MP #### [facility] [address] [address] [address] Aly Ca Creatinine [Mass/Vol] 0.71 mg/dL Normal 0.55-1.02 [facility] Comment on above: Performed By: #### C MP #### [facility] [address] [address] [address] Aly Ca EGFR-AF THAI >60 Normal >=60 [facility] Comment on above: Performed By: #### C MP #### [facility] [address] [address] [address] Aly Ca EGFR-NON AF THAI >60 Normal >=60 [facility] Comment on above: Performed By: #### C MP #### [facility] [address] [address] [address] Aly Ca Globulin (S) [Mass/Vol] 3.6 g/dL Normal [facility] Comment on above: Performed By: #### C MP #### [facility] [address] [address] [address] Aly Ca Glucose [Mass/Vol] 150 mg/dL Critically high 74-106 [facility] Comment on above: Performed By: #### C MP #### [facility] [address] [place] [address] Dr. Aly Ca Potassium [Moles/Vol] 3.8 mmol/L Normal 3.5-5.1 [facility] Comment on above: Performed By: #### C MP #### [facility] [address] [place] [address] Dr. Aly Ca Protein [Mass/Vol] 7.2 g/dL Normal 6.4-8.2 [facility] Comment on above: Performed By: #### C MP #### [facility] [address] [place] [address] Dr. Aly Ca Sodium [Moles/Vol] 141 mmol/L Normal 136-145 [facility] Comment on above: Performed By: #### C MP #### [facility] [address] [address] [address] Aly Ca Urea nitrogen [Mass/Vol] 15.0 mg/dL Normal 7.0-18.0 [facility] Comment on above: Performed By: #### C MP #### [facility] [address] [place] [address] Dr. Aly Ca Urea nitrogen/Creatinine [Mass ratio] 21.1 mg/mg Normal [facility] Comment on above: Performed By: #### C MP #### [facility] [address] [place] [address] Dr. Aly Ca PROTIMEon 04-29-2022 INR Coag (PPP) [Relative time] 0.95 {INR} Normal [facility] Comment on above: Performed By: #### P TT, PT #### [facility] [address] [place] [address] Dr. Aly Ca INR GUIDELINES SEE BELOW Normal [facility] Comment on above: Result Comment: JACQUE RED INR: 2.0 - 3.0 CONDITIONS NOT LISTED BELOW 2.5 - 3.5 FOR PROSTHETIC HEART VALVE REPLACEMENT 2.5 - 3.5 RECURRENT THROMBOSIS Performed By: #### P TT, PT #### [facility] [address] [place] [address] Dr. Aly Ca PT Coag (PPP) [Time] 10.3 s Normal 9.0-11.6 [facility] Comment on above: Performed By: #### P TT, PT #### [facility] [address] [place] [address] Dr. Aly Ca PTTon 04-29-2022 aPTT Coag (Bld) [Time] 27.7 s Normal 22.3-36.2 [facility] Comment on above: Performed By: #### A MM #### [facility] [address] [place] [address] Dr. Aly Ca T4 LABCORPon 04-24-2022 T4 [Mass/Vol] 10.7 ug/dL Normal 4.5-12.0 [facility] Comment on above: Performed By: #### T 4LC #### [facility] [address] [place] [address] Dr. Aly Ca CBC AUTO DIFFon 04-23-2022 BASO # 0.1 103/ul Normal 0.0-0.1 [facility] Comment on above: Performed By: #### C BC #### [facility] [address] [place] [address] Dr. Aly Ca Basophils/100 WBC (Bld) 1.5 % Normal 0.2-2.0 [facility] Comment on above: Performed By: #### C BC #### [facility] [address] [place] [address] Dr. Aly Ca EO # 0.4 103/ul Normal 0.0-0.7 [facility] Comment on above: Performed By: #### C BC #### [facility] [address] [place] [address] Dr. Aly Ca Eosinophils/100 WBC (Bld) 5.6 % Normal 0.9-7.0 [facility] Comment on above: Performed By: #### C BC #### [facility] [address] [place] [address] Dr. Aly Ca Erythrocyte distribution width (RBC) [Ratio] 12.3 % Normal 11.0-15.0 [facility] Comment on above: Performed By: #### C BC #### [facility] [address] [place] [address] Dr. Aly Ca Hematocrit (Bld) [Volume fraction] 38.4 % Normal 36.0-48.0 [facility] Comment on above: Performed By: #### C BC #### [facility] [address] [place] [address] Dr. Aly Ca Hemoglobin (Bld) [Mass/Vol] 13.0 g/dL Normal 12.0-16.0 [facility] Comment on above: Performed By: #### C BC #### [facility] [address] [place] [address] Dr. Aly Ca IG # 0.03 10e3/ul Normal 0.00-0.03 [facility] Comment on above: Performed By: #### C BC #### [facility] [address] [place] [address] Dr. Aly Ca IG % 0.5 % Normal 0.0-0.5 [facility] Comment on above: Performed By: #### C BC #### [facility] [address] [place] [address] Dr. Aly Ca LYMPH # 2.3 103/ul Normal 1.2-3.8 [facility] Comment on above: Performed By: #### C BC #### [facility] [address] [place] [address] Dr. Aly Ca Lymphocytes/100 WBC (Bld) 35.0 % Normal 20.5-60.0 [facility] Comment on above: Performed By: #### C BC #### [facility] [address] [place] [address] Dr. Aly Ca MANUAL DIFF REQ NO Normal [facility] Comment on above: Performed By: #### C BC #### [facility] [address] [place] [address] Dr. Aly Ca MCH (RBC) [Entitic mass] 31.8 pg Normal 26.7-34.0 [facility] Comment on above: Performed By: #### C BC #### [facility] [address] [place] [address] Dr. Aly Ca MCHC (RBC) [Mass/Vol] 33.9 g/dL Normal 29.9-35.2 [facility] Comment on above: Performed By: #### C BC #### [facility] [address] [place] [address] Dr. Aly Ca MCV (RBC) [Entitic vol] 93.9 fL Normal 81.0-99.0 [facility] Comment on above: Performed By: #### C BC #### [facility] [address] [place] [address] Dr. Aly Ca MONO # 0.4 103/ul Normal 0.3-0.8 [facility] Comment on above: Performed By: #### C BC #### [facility] [address] [place] [address] Dr. Aly Ca Monocytes/100 WBC (Bld) 6.3 % Normal 1.7-12.0 [facility] Comment on above: Performed By: #### C BC #### [facility] [address] [place] [address] Dr. Aly Ca NEUT # 3.4 103/ul Normal 1.4-6.5 [facility] Comment on above: Performed By: #### C BC #### [facility] [address] [place] [address] Dr. Aly Ca Neutrophils/100 WBC (Bld) 51.1 % Normal 43.0-75.0 [facility] Comment on above: Performed By: #### C BC #### [facility] [address] [address] [address] Aly Ca Platelet mean volume (Bld) [Entitic vol] 9.8 fL Normal 9.5-13.5 [facility] Comment on above: Performed By: #### C BC #### [facility] [address] [address] [address] Aly Ca PLT 388 103/ul Normal 150-450 [facility] Comment on above: Performed By: #### C BC #### [facility] [address] [place] [address] Dr. Aly Ca RBC 4.09 106/ul Critically low 4.20-5.40 [facility] Comment on above: Performed By: #### C BC #### [facility] [address] [place] [address] Dr. Aly Ca WBC 6.7 103/ul Normal 4.0-11.0 [facility] Comment on above: Performed By: #### C BC #### [facility] [address] [place] [address] Dr. Aly Ca FREE T3on 04-23-2022 FREE T3 3.55 pg/mlL Normal 2.18-3.98 [facility] Comment on above: Performed By: #### A MM #### [facility] [address] [place] [address] Dr. Aly Ca GLYCOHEMOGLOBIN A1Con 2021 ADA RECOMMENDATION SEE BELOW Normal [facility] Comment on above: Result Comment: ADA RECOMMENDED LIMIT 4.0 - 6.0 ADA THERAPEUTIC TARGET < 7.0 ACTION SUGGESTED > 7.0 Performed By: #### A 1C #### [facility] [address] [place] [address] Dr. Aly Ca Glucose [Mass/Vol] 151 mg/dL Normal [facility] Comment on above: Performed By: #### A 1C #### [facility] [address] [place] [address] Dr. Aly Ca HbA1c (Bld) [Mass fraction] 6.9 % Critically high 4.5-6.2 [facility] Comment on above: Performed By: #### A 1C #### [facility] [address] [address] [address] Aly Ca LIPID PROFILEon 04-23-2022 CHOL-HDL RATIO NORM SEE BELOW Normal [facility] Comment on above: Result Comment: 3.3 - 4.4 LOW RISK 4.4 - 7.1 AVERAGE RISK 7.1 - 11.0 MODERATE RISK >11.0 HIGH RISK Performed By: #### A MM #### [facility] [address] [address] [address] Aly Ca Cholesterol [Mass/Vol] 191 mg/dL Normal <=200 [facility] Comment on above: Performed By: #### A MM #### [facility] [address] [address] [address] Aly Ca Cholesterol in HDL [Mass/Vol] 34 mg/dL Critically low 40-60 [facility] Comment on above: Performed By: #### A MM #### [facility] [address] [address] [address] Aly Ca Cholesterol in LDL [Mass/Vol] 97.6 mg/dL Normal [facility] Comment on above: Performed By: #### A MM #### [facility] [address] [address] [address] Aly Ca Cholesterol.total/Cho lesterol in HDL [Mass ratio] 5.6 {ratio} Normal [facility] Comment on above: Performed By: #### A MM #### [facility] [address] [address] [address] Aly Ca HDL NORMAL > or = 60 mg/dl - LOW CARDIOVASCULAR RISK <40 mg/dl - HIGH CARDIOVASCULAR RISK Normal [facility] Comment on above: Performed By: #### A MM #### [facility] [address] [address] [address] Aly Ca LDL CALC NORMAL SEE BELOW Normal The [facility] Comment on above: Result Comment: <100 mg/dl OPTIMAL 100 - 129 mg/dl NEAR OR ABOVE OPTIMAL 130 - 159 mg/dl BORDERLINE HIGH 160 - 189 mg/dl HIGH >190 mg/dl VERY HIGH Performed By: #### A MM #### [facility] [address] [place] [address] Dr. Aly Ca Triglyceride [Mass/Vol] 297 mg/dL Critically high <=150 [facility] Comment on above: Performed By: #### A MM #### [facility] [address] [place] [address] Dr. Aly Ca VLDL CALC 59.4 mg/dL Normal [facility] Comment on above: Performed By: #### A MM #### [facility] [address] [place] [address] Dr. Aly Ca PROF 14(COMP METB)on 022 Albumin [Mass/Vol] 3.5 g/dL Normal 3.4-5.0 [facility] Comment on above: Performed By: #### A MM #### [facility] [address] [place] [address] Dr. Aly Ca Albumin/Globulin [Mass ratio] 1.0 {ratio} Normal [facility] Comment on above: Performed By: #### A MM #### [facility] [address] [place] [address] Dr. Aly Ca ALP [Catalytic activity/Vol] 126 U/L Critically high 46-116 [facility] Comment on above: Performed By: #### A MM #### [facility] [address] [place] [address] Dr. Aly Ca ALT [Catalytic activity/Vol] 99 U/L Critically high 14-59 [facility] Comment on above: Performed By: #### A MM #### [facility] [address] [place] [address] Dr. Aly Ca Anion gap [Moles/Vol] 13.4 mmol/L Normal [facility] Comment on above: Performed By: #### A MM #### [facility] [address] [place] [address] Dr. Aly Ca AST [Catalytic activity/Vol] 87 U/L Critically high 15-37 [facility] Comment on above: Performed By: #### A MM #### [facility] [address] [address] [address] Aly Ca Bilirubin [Mass/Vol] 0.7 mg/dL Normal 0.2-1.0 [facility] Comment on above: Performed By: #### A MM #### [facility] [address] [address] [address] Aly Ca Calcium [Mass/Vol] 8.8 mg/dL Normal 8.5-10.1 [facility] Comment on above: Performed By: #### A MM #### [facility] [address] [address] [address] Aly Ca Chloride [Moles/Vol] 105 mmol/L Normal 98-107 [facility] Comment on above: Performed By: #### A MM #### [facility] [address] [place] [address] Dr. Aly Ca CO2 [Moles/Vol] 26.1 mmol/L Normal 21.0-32.0 [facility] Comment on above: Performed By: #### A MM #### [facility] [address] [place] [address] Dr. Aly Ca Creatinine [Mass/Vol] 0.64 mg/dL Normal 0.55-1.02 [facility] Comment on above: Performed By: #### A MM #### [facility] [address] [place] [address] Dr. Aly Ca EGFR-AF THAI >60 Normal >=60 [facility] Comment on above: Performed By: #### A MM #### [facility] [address] [place] [address] Dr. Aly Ca EGFR-NON AF THAI >60 Normal >=60 [facility] Comment on above: Performed By: #### A MM #### [facility] [address] [place] [address] Dr. Aly Ca Globulin (S) [Mass/Vol] 3.4 g/dL Normal [facility] Comment on above: Performed By: #### A MM #### [facility] [address] [address] [address] Aly Ca Glucose [Mass/Vol] 157 mg/dL Critically high 74-106 T [facility] Comment on above: Performed By: #### A MM #### [facility] [address] [address] [address] Aly Ca Potassium [Moles/Vol] 3.5 mmol/L Normal 3.5-5.1 [facility] Comment on above: Performed By: #### A MM #### [facility] [address] [address] [address] Aly Ca Protein [Mass/Vol] 6.9 g/dL Normal 6.4-8.2 [facility] Comment on above: Performed By: #### A MM #### [facility] [address] [address] [address] Aly Ca Sodium [Moles/Vol] 141 mmol/L Normal 136-145 [facility] Comment on above: Performed By: #### A MM #### [facility] [address] [address] [address] Aly Ca Urea nitrogen [Mass/Vol] 11.0 mg/dL Normal 7.0-18.0 [facility] Comment on above: Performed By: #### A MM #### [facility] [address] [address] [address] Aly Ca Urea nitrogen/Creatinine [Mass ratio] 17.2 mg/mg Normal [facility] Comment on above: Performed By: #### A MM #### [facility] [address] [address] [address] Aly Ca TSHon 04-23-2022 TSH 0.192 uIU/mL Critically low 0.358-3.740 [facility] Comment on above: Performed By: #### A MM #### [facility] [address] [address] [address] Aly Ca TSH RANGE SEE BELOW Normal [facility] Comment on above: Result Comment: <0.3 4 UIU/ml HYPERTHYROID 0.34-5.60 UIU/ml EUTHYROID >5.60 UIU/ml HYPOTHYROID Performed By: #### A MM #### [facility] [address] [address] [address] Aly Ca VITAMIN D 25 OHon 04-23-2022 VIT D 25-OH 53.2 ng/mL Normal [facility] Comment on above: Performed By: #### V ITAD #### [facility] [id number] Aly Ca VIT D RANGES SEE BELOW Normal [facility] Comment on above: Result Comment: <20 ng/mL Vit D deficient 20 - <30 ng/mL Vit D insufficient 30 - 100 ng/mL Vit D sufficient >100 ng/mL Potential Toxicity Performed By: #### V ITAD #### [facility] [address] [address] [address] Aly Ca Vital Signs Date Time Vital Sign Value Performing Clinician Facility 08-03-2023 13:40-0400 Body height 167.64 cm Genesis Larsonmond Other [facility] Other 08-03-2023 13:40-0400 Body mass index (BMI) [Ratio] 26.56 kg/m2 Genesis Larsonmond Other [facility] Other 08-03-2023 13:40-0400 Body temperature 97.2 [degF] Genesis Larsonmond Other [facility] Other 08-03-2023 13:40-0400 Body weight 74.66 kg Genesis Larsonmond Other [facility] Other 08-03-2023 13:40-0400 Diastolic blood pressure 77 mm[Hg] Genesis Larsonmond Other [facility] Other 08-03-2023 13:40-0400 Respiratory rate 22 /min Genesis Yomaira Other [facility] Other 08-03-2023 13:40-0400 SaO2% (BldA) [Mass fraction] 97 % Genesis Burnette Other [facility] Other 08-03-2023 13:40-0400 Systolic blood pressure 125 mm[Hg] Genesis Burnette Other [facility] Other Encounters Encounter Date Encounter Type Care Provider Facility Start: 08-03-2023 End: 08-03-2023 ambulatory Genesis Burnette Other [facility] Other Start: 08-03-2023 Office outpatient ne w 20 minutes Genesis Burnette [facility] Start: 03-31-2023 End: 04-01-2023 ambulatory GENESIS ANSARI Facility:[facility] Start: 05-01-2022 End: 05-01-[address] WILDA ORTEGA . Facility:[facility] Start: 04-29-2022 End: 04-30-[address] WILDA ORTEGA . Facility:[facility] Start: 04-23-2022 End: 04-24-[address] WILDA ORTEGA . Facility:[facility] Payers Date Payer Category Payer Medicare [id number] 1957 Private Health Insurance [facility] [id number] 1940 Unknown [id number] 1940 Unknown [id number] 1940 Unknown [id number] 1940 Unknown [id number] Social History Date Type Detail Facility Unknown if ever smoked [facility] Other Sex Assigned At Sex Assigned At Bir th [facility] Other Evaluation note 08-03-2023 Note Date & [...] unspecified chronicity, unspecified type (ICD-10 - H60.92) [facility] Other History general Narrative - Reported Note Date & Type Note Facility History general Narrative - Reported Type Medical History Hypothyroid Medical History Anxiety Medical History Hypercholesteremia Medical History Diabetes Medical History Dizziness Surgical History cholecystectomy Surgical History bladder suspension, unspecified Surgical History tubal ligation Surgical History oral surgery Surgical History HYSTERECTOMY Surgical History D&C Surgical History colonoscopy [facility] Other Summary Purpose Family History No Family [...] BE BASED ON THE PRIMARY CLINICAL RECORDS. [facility]. provides no warranty or guarantee of the accuracy or completeness of information in this document.
--- NOTE | 2024-11-30 08:45 | ED.GENADUL1 ---
HPI HPI - General Adult General Chief complaint: Cardiac Arrest/CPR Stated complaint: sob anxiety Time Seen by Provider: 11/30/24 08:07 Mode of arrival: ambulance History of Present Illness HPI narrative: Patient is a 84-year-old female who is presenting by EMS staff from home with initial report was difficulty breathing, chest pain, not feeling well. When patient arrived by EMS, CPR was not in process, they were assisting breathing with [id number]. EMS staff stated that patient stopped breathing when they pulled into the parking lot of the emergency room. EMS staff stated they thought patient's pulse went down into the 30s. When patient arrived, she had a GCS of 3, no pulse, no respiratory rate, CODE BLUE was called, CPR was initiated. Additional history was obtained from when he had arrives and patient had , stated that she has been having chest pain, difficulty breathing and not feeling well for the past week. Patient has been trying to get her to come to the hospital for evaluation and she refused. All systems are negative except as noted/marked. All systems reviewed and otherwise negative. General: The patient appears in severe distress, GCS of 3, no pulse, not breathing. Patient is cool to touch, Skin: cool, dry, no pallor noted. No signs of trauma, no ecchymosis noted, patient was not logrolled. There is no rash noted. No petechiae, purpura. Head: Normocephalic, atraumatic Eye: Pupils are approximately 3 mm to 4 mm, fixed, not responsive to light Ears, Nose, Mouth, and Throat: oral mucosa is dry, patient is missing most of her teeth, the teeth that she does have have dental caries, significantly eroded Nares patent. Mouth without vesicles. Cardiovascular: No heart rate Respiratory: Patient is in severe distress, no respiratory rate Back: Patient was not logrolled due to ACS protocols that started as soon as patient arrived to the ER GI: no pulsatile mass, soft Neurological: A&O x0, GCS 3 Opioid HPI Opioid Management Most Recent Opioid Data: No Data to Display Medical Decision Making MDM Narrative Medical decision making narrative: When patient arrived, patient had no heart rate or rhythm, patient was not breathing, patient was alert and orient x 0, GCS of 3. EMS staff stated that patient heart rate decreased with a arrived to the ER, that patient was speaking in sentences prior to arrival. Patient initial complaint was chest pain and shortness of breath for the past week. Patient had no IV access. EMS staff stated that they attempted twice for an IV. Blood sugar was not checked, patient arrived blood sugar was checked and it was above 300. No recent fall or trauma that we are aware of, initially came to the ER. stated that patient has been having chest pain, shortness of breath for the past week, and patient has been trying to get her to come to the hospital, and patient has been refusing. Please see ACLS protocols. Patient receives approximately 4 A of epinephrine, patient also received 2 A of bicarb. ACLS protocols were in place. It was thought that patient was most likely on arrival when patient did arrive. Patient did have an IO placed to the right medial proximal to which was functioning well. Patient was intubated successfully by myself, 7.5 ET tube. Patient had no complications during intubation. Patient blood sugar was over 300. arrived after patient had at 0751. I spoke to the patient with Susie Toro RN, ER nurse tobacco warehouse manager as well. Patient PCP is Dr. Burgos. Dr. Burgos will decide this with good. I did speak to Miguel Mcneal, from the environmental service aide's office, at approximately 0820. Patient is not a environmental service aide's case, he is aware of the patient and also that Dr. Burgos will sign the certificate. Procedure note. Procedure done by . intubation. patient was preoxygenated with [id number], patient maintain occupation in the high 80s% saturation. A 4-0 Mac blade was used. Patient's dentition are intact. A 7.5 ET tube was used. The balloon was checked with 10 cc of air prior to used. There is no holes in the balloon. Vocal cords were visualized. The ET tube was visualized passing through the vocal cords. Patient had good color change on capnometer. Patient had equal breath sounds bilateral, good condensation in the ET tube. The ET tube was secured at 21cm at the gumline. Patient tolerated the procedure well without difficulty, no traumawas induced. Patient dentition is extremely poor, the dentition that she did have which was minimal to the lower teeth of partially and almost completely eroded teeth of 24, 25, 26, remained intact. No bleeding occurred. Patient did have good color change, equal breath rise, equal breath sounds bilateral. No emesis occurred. Dr. Burgos is aware the patient, he will sign the specific it. I did speak to Miguel Mcneal from the environmental service aide's office as well. Patient is not a environmental service aide's case. Patient most likely arrived on arrival, patient of cardiopulmonary arrest. I did speak to the with Susie Toro. did not have a cell phone. He did not have any phone numbers with him. He was brought back into the room by myself. He did not stay long and did not want to stay long. He is aware of the . He stated that he did know the home that she wanted to go to. Arrangements have been made. See Susie Toro documentation with consultation with as well which was appreciated. Critical care time 55 minutes exclusive from separate billable procedures that were performed. The following was considered in the determination of critical care but not limited to the level of medical decision making, intensive cardiac and/or respiratory monitoring, frequent vital sign monitoring, evaluation of laboratory studies, evaluation of radiographic studies, oxygen monitoring, and constant monitoring and speaking to family at bedside Discharge Plan Discharge Patient Disposition: Date/Time: 11/30/24 07:51 Probable Cause of Probable Cause of : Cardiac arrest
== END 2024-11-30 10:27 | disposition expired ==
PROVIDERS: Emergency Provider Emergency Medicine; PCP Family Medicine
DX: I46.9 Cardiac arrest, cause unspecified (principal)
CPT/HCPCS: 31500; 36680; 92950; 99285; J0171